=== PATIENT | female | born 1960 | race Caucasian/White ===

== ENCOUNTER 2017-04-10 16:02 | Emergency (ER) | payer OTHER ==
[~2017-04-10] VITALS: Ht 160 cm; Wt 72.6 kg
[~2017-04-10 16:02] MED LIST: ALBUPOW26; ALPR0.5T
[2017-04-10] MEDS ORDERED: IPRATROPIUM BROM 0.5 MG/2.5ML INH SOL NEB ONE (16:30)
[2017-04-10] MEDS ORDERED: ALBUTEROL SULF 2.5 MG/0.5ML(0.5%) NEB SOLN NEB ONE (16:30)
[2017-04-10 17:55] LABS: Basophils # (auto) 0 uL; Basophils % (auto) 0.4 % (0.0-2.0); Eosinophils # (auto) 0.2 uL; Eosinophils % (auto) 2.6 % (0.0-7.0); Hematocrit 41.2 % (36.0-46.0); Hemoglobin 14.1 g/dL (12.2-16.2); Lymphocytes % (auto) 54.6 % (10.0-50.0); Mean Corpuscular Hemoglobin 32.5 pg (28.0-32.0); Mean Corpuscular Hgb Conc. 34.3 g/dL (32.0-36.0); Mean Corpuscular Volume 94.9 fL (80.0-100.0); Monocytes # (auto) 0.6 uL; Monocytes % (auto) 7.5 % (0.0-12.0); Neutrophils # (auto) 2.6 uL; Neutrophils % (auto) 34.9 % (37.0-80.0); Platelet Count (auto) 244 10^3/uL (140-450); Red Blood Cells 4.34 10^6/uL (4.0-5.20); Red Cell Distribution Width 14.1 % (11.8-14.3); White Blood Cell 7.4 10^3/uL (4.4-10.8)
[2017-04-10 18:00] LABS: Alanine Aminotransferase 53 U/L (13-56); Albumin 3.7 g/dL (3.4-5.0); Anion Gap 7 (5-15); Aspartate Aminotransferase 27 U/L (15-37); BUN/Creatinine Ratio 13.9; Blood Urea Nitrogen 10 mg/dL (7-18); Calcium 8.6 mg/dL (8.5-10.1); Carbon Dioxide 27 mmol/L (21-32); Chloride 104 mmol/L (98-107); GFR African American 107 mL/min; GFR Non-African American 88 mL/min; Glucose 113 mg/dL (74-106); Magnesium 2.3 mg/dL (1.6-2.6); Potassium 3.6 mmol/L (3.5-5.1); Sodium 138 mmol/L (136-145)
[2017-04-10 18:04] LABS: Alkaline Phosphatase 91 U/L (45-117); Bilirubin, Total 0.2 mg/dL (0.2-1.0); Total Protein 7.5 g/dL (6.4-8.2)
[2017-04-10] MEDS ORDERED: KETOROLAC TROMETH 30 MG/ML 1ML VIAL IV ONE (19:00)
[2017-04-10] MEDS ORDERED: cefTRIAXone 1GM/50ML D5W 50 ML IV ONE (19:00)
[2017-04-10] MEDS ORDERED: methylPREDNISolone SOD SUCC 125 MG/2 ML VL IV ONE (19:00)
[2017-04-10 21:00] VITALS: BP 124/86
== END 2017-04-10 21:51 | disposition left against medical advice (07) ==
LOC: ER 16:07
DX: J44.1 Chronic obstructive pulmonary disease with (acute) exacerbation (principal); J18.9 Pneumonia, unspecified organism; Z90.710 Acquired absence of both cervix and uterus; F17.210 Nicotine dependence, cigarettes, uncomplicated; Z90.49 Acquired absence of other specified parts of digestive tract; Z53.29 Procedure and treatment not carried out because of patient's decision for other reasons
CPT/HCPCS: 36415; 71010; 74176; 80053; 83735; 83880; 84484; 85025; 93005; 94644; 96365; 96375; 99285; J0696; J1885; J2930

== ENCOUNTER 2017-06-13 12:19 | Inpatient (IN) | payer MEDICAID ==
[~2017-06-13] VITALS: Ht 160 cm; Wt 79.6 kg
[~2017-06-13 12:19] MED LIST changes: -ALBUPOW26; -ALPR0.5T; +ASP81EC PO; +CITA10TA59 PO; +CLON0.5T PO; +LEVO500T21 PO; +PANT40TA2 PO; +QUET50TA PO
[2017-06-13] MEDS ORDERED: SODIUM CHLORIDE 0.9% 1,000 ML IV ONE (13:01)
[2017-06-13] MEDS ORDERED: methylPREDNISolone SOD SUCC 125 MG/2 ML VL IV ONE (13:15)
[2017-06-13] MEDS ORDERED: ALBUTEROL SULF 2.5 MG/0.5ML(0.5%) NEB SOLN NEB ONE ×2 (13:15→18:00)
[2017-06-13] MEDS ORDERED: IPRATROPIUM BROM 0.5 MG/2.5ML INH SOL NEB ONE ×2 (13:15→18:00)
[2017-06-13 13:23] LABS: Basophils # (auto) 0.1 uL; Basophils % (auto) 1.2 % (0.0-2.0); Eosinophils # (auto) 0.1 uL; Hemoglobin 16.6 g/dL (12.2-16.2); Lymphocytes # (auto) 4.3 uL; Lymphocytes % (auto) 41.3 % (10.0-50.0); Mean Corpuscular Hgb Conc. 33.9 g/dL (32.0-36.0); Mean Corpuscular Volume 91.4 fL (80.0-100.0); Monocytes # (auto) 0.7 uL; Monocytes % (auto) 6.6 % (0.0-12.0); Neutrophils # (auto) 5.2 uL; Neutrophils % (auto) 49.9 % (37.0-80.0); Nucleated Red Blood Cells % 0.2 %; Platelet Count (auto) 363 10^3/uL (140-450); Red Blood Cells 5.35 10^6/uL (4.0-5.20); Red Cell Distribution Width 13.8 % (11.8-14.3); White Blood Cell 10.4 10^3/uL (4.4-10.8)
[2017-06-13] MEDS ORDERED: NALBUPHINE HCL 10 MG/1ml INJECTION IV ONE (14:00)
[2017-06-13] MEDS ORDERED: PROMETHAZINE HCL 25 MG/ML 1ML IV ONE ×2 (14:00→18:00)
[2017-06-13] MEDS ORDERED: PANTOPRAZOLE 40 MG TAB PO ONE (14:00)
[2017-06-13 14:01] LABS: Anion Gap 10 (5-15); Blood Urea Nitrogen 8 mg/dL (7-18); Carbon Dioxide 20 mmol/L (21-32); Chloride 110 mmol/L (98-107); Glucose 134 mg/dL (74-106); Potassium 3.8 mmol/L (3.5-5.1); Sodium 140 mmol/L (136-145)
[2017-06-13 14:02] LABS: Alanine Aminotransferase 41 U/L (13-56); Albumin 4.2 g/dL (3.4-5.0); Alkaline Phosphatase 107 U/L (45-117); Aspartate Aminotransferase 21 U/L (15-37); BUN/Creatinine Ratio 8.8; Bilirubin, Total 0.5 mg/dL (0.2-1.0); Calcium 9.3 mg/dL (8.5-10.1); GFR African American 82 mL/min; GFR Non-African American 67 mL/min; Magnesium 2.3 mg/dL (1.6-2.6); Total Protein 8.2 g/dL (6.4-8.2)
[2017-06-13] MEDS ORDERED: KETOROLAC TROMETH 30 MG/ML 1ML VIAL IV ONE (18:00)
[2017-06-13] MEDS ORDERED: AZITHROMYCIN 500MG/ 250ML 250 ML IV ONE (18:00)
[2017-06-13] MEDS ORDERED: NITROGLYCERIN 0.4 MG SL TAB SL PRN (18:45)
[2017-06-13] MEDS ORDERED: LACTULOSE 20Gm/30ML SOLN PO PRN (18:45)
[2017-06-13] MEDS ORDERED: LORazepam 0.5 MG TAB PO PRN (18:45)
[2017-06-13] MEDS ORDERED: ACETAMINOPHEN 500 MG TAB PO PRN (18:45)
[2017-06-13] MEDS ORDERED: TEMAZEPAM 15 MG CAP PO PRN (18:45)
[2017-06-13] MEDS ORDERED: PROMETHAZINE HCL 25 MG/ML 1ML IV PRN (18:45)
[2017-06-13] MEDS ORDERED: MORPHINE SULF INJ 2 MG/ML SYRINGE 1ML IV PRN (18:45)
[2017-06-13] MEDS ORDERED: DEXTROSE (50%) 50ML SYRG IV PRN (18:45)
[2017-06-13 18:55] VITALS: BP 138/38
[2017-06-13] MEDS: SODIUM CHLORIDE 0.9% 1,000 ML IV SCH (19:16)
[2017-06-13] MEDS: DOXYCYCLINE HYC 100MG/250ML 250 ML IV SCH (19:26)
[2017-06-13 20:30] VITALS: BP 128/74
[2017-06-13] MEDS: HYDROcodone-ACET 5/325MG TAB PO PRN (20:30)
[2017-06-13 21:00] VITALS: BP 128/74
[2017-06-13] MEDS: QUEtiapine FUMARATE 100 MG TAB PO SCH (22:00)
[2017-06-13] MEDS: clonazePAM 0.5 MG TAB PO SCH (22:00)
[2017-06-14] MEDS: ACCU-CHEK COMFORT CURVE STRIP VI SCH ×5 (00:07→23:46)
[2017-06-14] MEDS: methylPREDNISolone SOD SUCC 40 MG/ML VL IV SCH ×5 (00:07→23:46)
[2017-06-14] MEDS: MORPHINE SULF INJ 2 MG/ML SYRINGE 1ML IV PRN ×5 (00:08→22:42)
[2017-06-14] MEDS: ALBUTEROL SULF 2.5 MG/0.5ML(0.5%) NEB SOLN NEB SCH ×3 (00:40→13:00)
[2017-06-14] MEDS: IPRATROPIUM BROM 0.5 MG/2.5ML INH SOL NEB SCH ×3 (00:40→13:00)
[2017-06-14] MEDS ORDERED: INFLUENZA QUAD 2017-2018 0.5 ML SYRG IM ONE (02:30)
[2017-06-14] MEDS ORDERED: LAM100T OR (03:34)
[2017-06-14] MEDS ORDERED: OMEP20CA74 PO (03:34)
[2017-06-14 05:26] VITALS: BP 123/66
[2017-06-14] MEDS: DOXYCYCLINE HYC 100MG/250ML 250 ML IV SCH ×2 (06:19→18:05)
[2017-06-14 06:21] LABS: Cholesterol 226 mg/dL (< 200); HDL Cholesterol 49 mg/dL (40-59); LDL Cholesterol 157 mg/dL (< 100); Triglycerides 129 mg/dL (< 150)
[2017-06-14 08:00] VITALS: BP 123/66
[2017-06-14] MEDS: PANTOPRAZOLE 40 MG TAB PO SCH (08:48)
[2017-06-14 09:00] VITALS: BP 119/69
[2017-06-14] MEDS: SODIUM CHLORIDE 0.9% 1,000 ML IV SCH (09:02)
[2017-06-14] MEDS ORDERED: ENOXAPARIN SOD 40 MG/0.4 ML SYRINGE SC SCH (10:00)
[2017-06-14] MEDS ORDERED: ASPirin-EC 81 mg tab PO SCH (10:00)
[2017-06-14] MEDS: CITALOPRAM HYDROBR 20 MG TAB PO SCH (12:30)
[2017-06-14 12:59] VITALS: BP 124/71
[2017-06-14 17:00] VITALS: BP 132/71
[2017-06-14] MEDS ORDERED: cefTRIAXone 1GM/10ml IVPUSH 10 ML IV ONE (18:15)
[2017-06-14] MEDS: clonazePAM 0.5 MG TAB PO SCH (21:26)
[2017-06-14] MEDS: QUEtiapine FUMARATE 100 MG TAB PO SCH (21:26)
[2017-06-14 22:00] VITALS: BP 143/71
[2017-06-15] MEDS: SODIUM CHLORIDE 0.9% 1,000 ML IV SCH ×3 (00:07→23:56)
[2017-06-15 05:34] VITALS: BP 127/69
[2017-06-15] MEDS: methylPREDNISolone SOD SUCC 40 MG/ML VL IV SCH ×4 (05:35→23:45)
[2017-06-15] MEDS: ACCU-CHEK COMFORT CURVE STRIP VI SCH ×4 (05:35→23:46)
[2017-06-15] MEDS: MORPHINE SULF INJ 2 MG/ML SYRINGE 1ML IV PRN ×4 (05:36→21:44)
[2017-06-15] MEDS: DOXYCYCLINE HYC 100MG/250ML 250 ML IV SCH ×2 (05:55→18:32)
[2017-06-15] MEDS: ALBUTEROL SULF 2.5 MG/0.5ML(0.5%) NEB SOLN NEB SCH ×5 (06:00→19:26)
[2017-06-15] MEDS: IPRATROPIUM BROM 0.5 MG/2.5ML INH SOL NEB SCH ×5 (06:00→19:26)
[2017-06-15 06:35] LABS: Basophils # (auto) 0 uL; Basophils % (auto) 0.2 % (0.0-2.0); Eosinophils # (auto) 0 uL; Hematocrit 42.8 % (36.0-46.0); Hemoglobin 14.2 g/dL (12.2-16.2); Lymphocytes # (auto) 1.7 uL; Lymphocytes % (auto) 11.8 % (10.0-50.0); Mean Corpuscular Hgb Conc. 33.2 g/dL (32.0-36.0); Mean Corpuscular Volume 93.4 fL (80.0-100.0); Monocytes # (auto) 0.4 uL; Monocytes % (auto) 2.7 % (0.0-12.0); Neutrophils # (auto) 12.6 uL; Neutrophils % (auto) 85.3 % (37.0-80.0); Nucleated Red Blood Cells % 0.1 %; Platelet Count (auto) 283 10^3/uL (140-450); Red Blood Cells 4.59 10^6/uL (4.0-5.20); Red Cell Distribution Width 13.8 % (11.8-14.3); White Blood Cell 14.8 10^3/uL (4.4-10.8)
[2017-06-15 06:55] LABS: Albumin 3.4 g/dL (3.4-5.0); Calcium 9.5 mg/dL (8.5-10.1); Potassium 4.3 mmol/L (3.5-5.1)
[2017-06-15 06:58] LABS: Bilirubin, Total 0.3 mg/dL (0.2-1.0); Total Protein 6.9 g/dL (6.4-8.2)
[2017-06-15 08:00] VITALS: BP 147/74
[2017-06-15 09:00] VITALS: BP 147/74
[2017-06-15] MEDS: PANTOPRAZOLE 40 MG TAB PO SCH (10:37)
[2017-06-15] MEDS: cefTRIAXone 1GM/10ml IVPUSH 10 ML IV SCH (10:38)
[2017-06-15 12:00] VITALS: BP 103/70
[2017-06-15] MEDS: CITALOPRAM HYDROBR 20 MG TAB PO SCH (12:22)
[2017-06-15] MEDS: ALBUTEROL SULF 2.5 MG/0.5ML(0.5%) NEB SOLN NEB PRN (14:52)
[2017-06-15 16:48] VITALS: BP 135/70
[2017-06-15] MEDS: QUEtiapine FUMARATE 100 MG TAB PO SCH (21:43)
[2017-06-15] MEDS: clonazePAM 0.5 MG TAB PO SCH (21:43)
[2017-06-15 22:00] VITALS: BP 142/77
[2017-06-16] MEDS: IPRATROPIUM BROM 0.5 MG/2.5ML INH SOL NEB SCH ×4 (00:44→18:43)
[2017-06-16] MEDS: ALBUTEROL SULF 2.5 MG/0.5ML(0.5%) NEB SOLN NEB SCH ×4 (00:44→18:43)
[2017-06-16] MEDS: SODIUM CHLORIDE 0.9% 1,000 ML IV SCH ×2 (04:20→21:08)
[2017-06-16 05:00] VITALS: BP 129/80
[2017-06-16] MEDS: methylPREDNISolone SOD SUCC 40 MG/ML VL IV SCH ×2 (05:42→17:29)
[2017-06-16] MEDS: ACCU-CHEK COMFORT CURVE STRIP VI SCH ×4 (05:43→23:30)
[2017-06-16] MEDS: DOXYCYCLINE HYC 100MG/250ML 250 ML IV SCH ×2 (06:15→18:58)
[2017-06-16 07:21] LABS: Basophils # (auto) 0 uL; Basophils % (auto) 0.2 % (0.0-2.0); Eosinophils # (auto) 0 uL; Hematocrit 41.5 % (36.0-46.0); Hemoglobin 13.9 g/dL (12.2-16.2); Lymphocytes # (auto) 1.2 uL; Lymphocytes % (auto) 11.2 % (10.0-50.0); Mean Corpuscular Hemoglobin 31.1 pg (28.0-32.0); Mean Corpuscular Hgb Conc. 33.6 g/dL (32.0-36.0); Mean Corpuscular Volume 92.4 fL (80.0-100.0); Monocytes # (auto) 0.3 uL; Monocytes % (auto) 2.7 % (0.0-12.0); Neutrophils % (auto) 85.9 % (37.0-80.0); Platelet Count (auto) 254 10^3/uL (140-450); Red Blood Cells 4.49 10^6/uL (4.0-5.20); Red Cell Distribution Width 13.6 % (11.8-14.3); White Blood Cell 10.5 10^3/uL (4.4-10.8)
[2017-06-16 07:35] LABS: Albumin 3.2 g/dL (3.4-5.0); Potassium 4.4 mmol/L (3.5-5.1)
[2017-06-16 07:45] LABS: BUN/Creatinine Ratio 35.1; Bilirubin, Total 0.2 mg/dL (0.2-1.0); Total Protein 6.6 g/dL (6.4-8.2)
[2017-06-16] MEDS: cefTRIAXone 1GM/10ml IVPUSH 10 ML IV SCH (08:15)
[2017-06-16] MEDS: MORPHINE SULF INJ 2 MG/ML SYRINGE 1ML IV PRN ×2 (08:17→13:17)
[2017-06-16 08:18] VITALS: BP 122/78
[2017-06-16] MEDS: PANTOPRAZOLE 40 MG TAB PO SCH (10:23)
[2017-06-16] MEDS: CITALOPRAM HYDROBR 20 MG TAB PO SCH (12:11)
[2017-06-16 12:53] VITALS: BP 156/77
[2017-06-16 16:56] VITALS: BP 132/68
[2017-06-16] MEDS: MORPHINE SULFATE 10 MG/ML INJ 1ML SDV IV PRN ×2 (17:29→22:12)
[2017-06-16] MEDS ORDERED: MORPHINE SULFATE 10 MG/ML INJ 1ML SDV IV PRN (17:30)
[2017-06-16] MEDS: clonazePAM 0.5 MG TAB PO SCH (21:38)
[2017-06-16] MEDS: QUEtiapine FUMARATE 100 MG TAB PO SCH (21:38)
[2017-06-16 22:05] VITALS: BP 142/88
[2017-06-17] MEDS: IPRATROPIUM BROM 0.5 MG/2.5ML INH SOL NEB SCH ×4 (00:31→18:17)
[2017-06-17] MEDS: ALBUTEROL SULF 2.5 MG/0.5ML(0.5%) NEB SOLN NEB SCH ×4 (00:31→18:17)
[2017-06-17 04:42] VITALS: BP 142/88
[2017-06-17 05:26] VITALS: BP 115/59
[2017-06-17] MEDS: methylPREDNISolone SOD SUCC 40 MG/ML VL IV SCH ×2 (05:42→17:58)
[2017-06-17] MEDS: ACCU-CHEK COMFORT CURVE STRIP VI SCH ×4 (06:02→23:40)
[2017-06-17] MEDS: DOXYCYCLINE HYC 100MG/250ML 250 ML IV SCH ×2 (06:16→17:59)
[2017-06-17 08:00] VITALS: BP 119/73
[2017-06-17] MEDS: MORPHINE SULFATE 10 MG/ML INJ 1ML SDV IV PRN ×4 (09:23→21:49)
[2017-06-17] MEDS: PANTOPRAZOLE 40 MG TAB PO SCH (09:23)
[2017-06-17] MEDS: cefTRIAXone 1GM/10ml IVPUSH 10 ML IV SCH (09:24)
[2017-06-17 11:55] VITALS: BP 137/75
[2017-06-17] MEDS: CITALOPRAM HYDROBR 20 MG TAB PO SCH (14:48)
[2017-06-17] MEDS ORDERED: DEXTROSE (50%) 50ML SYRG IV PRN ×2 (15:45)
[2017-06-17] MEDS: SODIUM CHLORIDE 0.9% 1,000 ML IV SCH (15:56)
[2017-06-17] MEDS: ALBUTEROL SULF 2.5 MG/0.5ML(0.5%) NEB SOLN NEB PRN (16:34)
[2017-06-17 16:54] VITALS: BP 113/75
[2017-06-17] MEDS ORDERED: InsuLIN REG 1unit/0.01ml Soln (100units/ml) SC SCH ×2 (17:00→22:00)
[2017-06-17] MEDS ORDERED: ACCU-CHEK COMFORT CURVE STRIP VI SCH (17:00)
[2017-06-17] MEDS: InsuLIN REG 1unit/0.01ml Soln (100units/ml) SC SCH ×2 (17:59→23:43)
[2017-06-17] MEDS: clonazePAM 0.5 MG TAB PO SCH (21:23)
[2017-06-17] MEDS: QUEtiapine FUMARATE 100 MG TAB PO SCH (21:23)
[2017-06-17 22:15] VITALS: BP 117/63
[2017-06-18] MEDS: SODIUM CHLORIDE 0.9% 1,000 ML IV SCH
[2017-06-18] MEDS: HYDROcodone-ACET 5/325MG TAB PO PRN (02:20)
[2017-06-18 05:18] VITALS: BP 117/65
[2017-06-18 05:30] LABS: Basophils # (auto) 0 uL; Basophils % (auto) 0.1 % (0.0-2.0); Eosinophils # (auto) 0 uL; Hematocrit 42.2 % (36.0-46.0); Hemoglobin 14.4 g/dL (12.2-16.2); Lymphocytes # (auto) 1.8 uL; Lymphocytes % (auto) 19.5 % (10.0-50.0); Mean Corpuscular Hemoglobin 31.6 pg (28.0-32.0); Mean Corpuscular Hgb Conc. 34.1 g/dL (32.0-36.0); Mean Corpuscular Volume 92.6 fL (80.0-100.0); Monocytes # (auto) 0.6 uL; Monocytes % (auto) 6.6 % (0.0-12.0); Neutrophils # (auto) 6.7 uL; Neutrophils % (auto) 73.8 % (37.0-80.0); Nucleated Red Blood Cells % 0.1 %; Platelet Count (auto) 232 10^3/uL (140-450); Red Blood Cells 4.56 10^6/uL (4.0-5.20); White Blood Cell 9.1 10^3/uL (4.4-10.8)
[2017-06-18] MEDS: methylPREDNISolone SOD SUCC 40 MG/ML VL IV SCH (05:45)
[2017-06-18] MEDS: MORPHINE SULFATE 10 MG/ML INJ 1ML SDV IV PRN (05:46)
[2017-06-18] MEDS: IPRATROPIUM BROM 0.5 MG/2.5ML INH SOL NEB SCH ×2 (05:46)
[2017-06-18] MEDS: ALBUTEROL SULF 2.5 MG/0.5ML(0.5%) NEB SOLN NEB SCH ×2 (05:46)
[2017-06-18 05:54] LABS: Calcium 8.9 mg/dL (8.5-10.1); Potassium 4.1 mmol/L (3.5-5.1)
[2017-06-18] MEDS: InsuLIN REG 1unit/0.01ml Soln (100units/ml) SC SCH (06:00)
[2017-06-18] MEDS: ACCU-CHEK COMFORT CURVE STRIP VI SCH (06:06)
[2017-06-18] MEDS: DOXYCYCLINE HYC 100MG/250ML 250 ML IV SCH (06:12)
[2017-06-18 07:26] VITALS: BP 106/65
[2017-06-18] MEDS: cefTRIAXone 1GM/10ml IVPUSH 10 ML IV SCH (09:06)
[2017-06-18] MEDS: PANTOPRAZOLE 40 MG TAB PO SCH (09:07)
[2017-06-18 10:09] VITALS: BP 106/65
== END 2017-06-18 11:23 | disposition home or self-care (01) | DRG 140 ==
LOC: ER 12:19 → OVERFLOW 12:20 → TELE-CENTR 20:24
PROVIDERS: ADMIT Internal Medicine; ATTEND Internal Medicine
DX: J44.1 Chronic obstructive pulmonary disease with (acute) exacerbation (principal); E11.65 Type 2 diabetes mellitus with hyperglycemia; E44.1 Mild protein-calorie malnutrition; E66.01 Morbid (severe) obesity due to excess calories; E11.9 Type 2 diabetes mellitus without complications; F17.210 Nicotine dependence, cigarettes, uncomplicated; F31.9 Bipolar disorder, unspecified; F41.9 Anxiety disorder, unspecified; Z82.49 Family history of ischemic heart disease and other diseases of the circulatory system; Z68.31 Body mass index [BMI] 31.0-31.9, adult; Z83.3 Family history of diabetes mellitus; Z90.710 Acquired absence of both cervix and uterus; Z90.49 Acquired absence of other specified parts of digestive tract; Z88.0 Allergy status to penicillin; Z83.42 Family history of familial hypercholesterolemia; Z79.82 Long term (current) use of aspirin; Z83.1 Family history of other infectious and parasitic diseases; Z79.899 Other long term (current) drug therapy
CPT/HCPCS: 36415; 70450; 71046; 80048; 80053; 80061; 82550; 82962; 83036; 83735; 84443; 84484; 85025; 85379; 85652; 86141; 87081; 87400; 93005; 94640; 94761; 96365; 96375; 96376; J1815; J1885; J3490

== ENCOUNTER 2017-08-25 10:43 | Emergency (ER) | payer MEDICAID ==
[~2017-08-25] VITALS: Ht 160 cm; Wt 79.4 kg
[~2017-08-25 10:43] MED LIST changes: -ASP81EC PO; +LAM100T OR; -LEVO500T21 PO; +OMEP20CA74 PO; -PANT40TA2 PO
[2017-08-25 11:56] LABS: Basophils # (auto) 0.1 uL; Basophils % (auto) 1.2 % (0.0-2.0); Eosinophils # (auto) 0.1 uL; Eosinophils % (auto) 1.1 % (0.0-7.0); Hematocrit 41.2 % (36.0-46.0); Hemoglobin 13.7 g/dL (12.2-16.2); Lymphocytes # (auto) 1.7 uL; Lymphocytes % (auto) 19.4 % (10.0-50.0); Mean Corpuscular Hemoglobin 30.7 pg (28.0-32.0); Mean Corpuscular Hgb Conc. 33.2 g/dL (32.0-36.0); Mean Corpuscular Volume 92.5 fL (80.0-100.0); Monocytes # (auto) 0.7 uL; Neutrophils # (auto) 6.2 uL; Neutrophils % (auto) 70.3 % (37.0-80.0); Platelet Count (auto) 234 10^3/uL (140-450); Red Blood Cells 4.45 10^6/uL (4.0-5.20); Red Cell Distribution Width 15.3 % (11.8-14.3); White Blood Cell 8.8 10^3/uL (4.4-10.8)
[2017-08-25 12:12] LABS: Alanine Aminotransferase 31 U/L (13-56); Albumin 3.4 g/dL (3.4-5.0); Alkaline Phosphatase 97 U/L (45-117); Anion Gap 7 (5-15); Aspartate Aminotransferase 20 U/L (15-37); BUN/Creatinine Ratio 8.2; Bilirubin, Total 0.4 mg/dL (0.2-1.0); Blood Urea Nitrogen 6 mg/dL (7-18); Calcium 8.6 mg/dL (8.5-10.1); Carbon Dioxide 24 mmol/L (21-32); Chloride 108 mmol/L (98-107); GFR African American 105 mL/min; GFR Non-African American 87 mL/min; Glucose 192 mg/dL (74-106); Magnesium 2.1 mg/dL (1.6-2.6); Sodium 139 mmol/L (136-145); Total Protein 7.3 g/dL (6.4-8.2)
[2017-08-25 12:14] VITALS: BP 149/67
[2017-08-25] MEDS ORDERED: cefTRIAXone SOD 1,000 MG VL IM ONE (12:15)
[2017-08-25] MEDS ORDERED: ALBUTEROL SULF 2.5 MG/0.5ML(0.5%) NEB SOLN NEB ONE (12:15)
[2017-08-25] MEDS ORDERED: methylPREDNISolone SOD SUCC 125 MG/2 ML VL IM ONE (12:15)
[2017-08-25] MEDS ORDERED: IPRATROPIUM BROM 0.5 MG/2.5ML INH SOL NEB ONE (12:15)
[2017-08-25] MEDS ORDERED: KETOROLAC TROMETH 60MG/2ML VIAL IM ONE (13:00)
== END 2017-08-25 13:29 | disposition home or self-care (01) ==
LOC: ER 10:43
DX: J45.901 Unspecified asthma with (acute) exacerbation (principal); I10 Essential (primary) hypertension; F17.210 Nicotine dependence, cigarettes, uncomplicated; Z90.710 Acquired absence of both cervix and uterus; Z90.49 Acquired absence of other specified parts of digestive tract
CPT/HCPCS: 36415; 71046; 80053; 83735; 84484; 85025; 93005; 94644; 96372; 99285; J0696; J1885; J2930

== ENCOUNTER 2017-10-03 11:57 | Observation (INO) | payer MEDICAID, OTHER ==
[~2017-10-03] VITALS: Ht 160 cm; Wt 81.2 kg
[2017-10-03 12:43] LABS: Urine Bacteria FEW /hpf (None Seen); Urine Blood TRACE /uL (Negative); Urine Specific Gravity 1.016 (1.001-1.035); Urine WBC <1 /hpf (0 - 5)
[2017-10-03 13:03] LABS: Basophils # (auto) 0.1 uL; Basophils % (auto) 0.9 % (0.0-2.0); Eosinophils # (auto) 0.1 uL; Eosinophils % (auto) 1.4 % (0.0-7.0); Hematocrit 45.8 % (36.0-46.0); Hemoglobin 15.4 g/dL (12.2-16.2); Lymphocytes # (auto) 4.1 uL; Lymphocytes % (auto) 49.1 % (10.0-50.0); Mean Corpuscular Hemoglobin 30.5 pg (28.0-32.0); Mean Corpuscular Hgb Conc. 33.7 g/dL (32.0-36.0); Mean Corpuscular Volume 90.7 fL (80.0-100.0); Monocytes # (auto) 0.7 uL; Monocytes % (auto) 8.3 % (0.0-12.0); Neutrophils # (auto) 3.4 uL; Neutrophils % (auto) 40.3 % (37.0-80.0); Nucleated Red Blood Cells % 0.1 %; Platelet Count (auto) 241 10^3/uL (140-450); Red Blood Cells 5.05 10^6/uL (4.0-5.20); Red Cell Distribution Width 14.6 % (11.8-14.3); White Blood Cell 8.4 10^3/uL (4.4-10.8)
[2017-10-03 13:21] LABS: Albumin 3.9 g/dL (3.4-5.0); BUN/Creatinine Ratio 12.8; Calcium 9.2 mg/dL (8.5-10.1); Potassium 4.1 mmol/L (3.5-5.1)
[2017-10-03 13:23] LABS: Bilirubin, Total 0.3 mg/dL (0.2-1.0); Total Protein 7.6 g/dL (6.4-8.2)
[2017-10-03] MEDS ORDERED: ONDANSETRON HCL 4 MG/2 ML VIAL IV ONE (14:15)
[2017-10-03 14:31] LABS: Magnesium 1.9 mg/dL (1.6-2.6)
[2017-10-03 14:53] LABS: INR 0.91 (0.9-1.15); Partial Thromboplastin Time 26.6 sec (22.64-33.71); Prothrombin Time 9.9 sec (9.37-12.3)
[2017-10-03] MEDS ORDERED: KETOROLAC TROMETH 30 MG/ML 1ML VIAL IV ONE (15:15)
[2017-10-03] MEDS ORDERED: MORPHINE SULFATE 8mg/ml INJ SDV IV ONE (16:15)
[2017-10-03] MEDS ORDERED: HYDROcodone-ACET 10/325MG TAB PO ONE (16:15)
[2017-10-03 17:13] VITALS: BP 125/78
== END 2017-10-03 17:16 | disposition home or self-care (01) | DRG 241 ==
LOC: ER 11:57 → OVERFLOW 14:10 → ER 17:16
PROVIDERS: ADMIT Family Medicine; ATTEND Family Medicine
DX: K29.70 Gastritis, unspecified, without bleeding (principal); K76.0 Fatty (change of) liver, not elsewhere classified; I10 Essential (primary) hypertension; F31.9 Bipolar disorder, unspecified; F17.210 Nicotine dependence, cigarettes, uncomplicated
CPT/HCPCS: 36415; 71045; 74176; 80053; 81001; 82150; 83690; 83735; 85025; 85610; 85730; 96374; 96375; 99285; G0378; J1885; J2405; 93005

== ENCOUNTER 2018-01-06 22:53 | Emergency (ER) | payer MEDICAID ==
[~2018-01-06] VITALS: Ht 160 cm; Wt 75.7 kg
[2018-01-06] MEDS ORDERED: ALBUTEROL SULF 2.5 MG/0.5ML(0.5%) NEB SOLN NEB ONE (23:15)
[2018-01-06] MEDS ORDERED: IPRATROPIUM BROM 0.5 MG/2.5ML INH SOL NEB ONE (23:15)
[2018-01-07 00:07] LABS: Basophils # (auto) 0.1 uL; Basophils % (auto) 1.2 % (0.0-2.0); Eosinophils # (auto) 0.2 uL; Eosinophils % (auto) 1.8 % (0.0-7.0); Hematocrit 46.5 % (36.0-46.0); Hemoglobin 15.9 g/dL (12.2-16.2); Lymphocytes # (auto) 5.7 uL; Lymphocytes % (auto) 50.2 % (10.0-50.0); Mean Corpuscular Hemoglobin 31.7 pg (28.0-32.0); Mean Corpuscular Hgb Conc. 34.1 g/dL (32.0-36.0); Mean Corpuscular Volume 92.9 fL (80.0-100.0); Monocytes # (auto) 0.9 uL; Monocytes % (auto) 7.6 % (0.0-12.0); Neutrophils # (auto) 4.4 uL; Neutrophils % (auto) 39.2 % (37.0-80.0); Nucleated Red Blood Cells % 0.2 %; Platelet Count (auto) 219 10^3/uL (140-450); Red Blood Cells 5.01 10^6/uL (4.0-5.20); Red Cell Distribution Width 15.1 % (11.8-14.3); White Blood Cell 11.3 10^3/uL (4.4-10.8)
[2018-01-07 00:23] LABS: Alanine Aminotransferase 44 U/L (13-56); Albumin 3.8 g/dL (3.4-5.0); Amylase 26 U/L (25-115); Anion Gap 10 (5-15); Aspartate Aminotransferase 21 U/L (15-37); BUN/Creatinine Ratio 9.8; Blood Urea Nitrogen 8 mg/dL (7-18); Calcium 9.3 mg/dL (8.5-10.1); Carbon Dioxide 22 mmol/L (21-32); Chloride 110 mmol/L (98-107); GFR African American 92 mL/min; GFR Non-African American 76 mL/min; Glucose 134 mg/dL (74-106); Lipase 91 U/L (73-393); Potassium 3.8 mmol/L (3.5-5.1); Sodium 142 mmol/L (136-145)
[2018-01-07 00:36] LABS: Alkaline Phosphatase 97 U/L (45-117); Bilirubin, Total 0.4 mg/dL (0.2-1.0); Total Protein 7.5 g/dL (6.4-8.2)
[2018-01-07] MEDS ORDERED: ONDANSETRON HCL 4 MG/2 ML VIAL IV ONE (00:45)
[2018-01-07] MEDS ORDERED: NITROGLYCERIN 0.4 MG SL TAB SL ONE (00:45)
[2018-01-07] MEDS ORDERED: ASPirin 81 mg TAB PO ONE (00:45)
[2018-01-07] MEDS ORDERED: MORPHINE SULFATE 4 MG/ML SYR/VIAL IV ONE (00:45)
[2018-01-07] MEDS ORDERED: KETOROLAC TROMETH 30 MG/ML 1ML VIAL IV ONE ×2 (04:45)
[2018-01-07] MEDS ORDERED: PANTOPRAZOLE 40 MG/10 ML VIAL IV ONE (04:45)
[2018-01-07 05:30] LABS: Urine Bacteria FEW /hpf (None Seen); Urine Blood Negative /uL (Negative); Urine Mucus FEW (None Seen); Urine Specific Gravity 1.022 (1.001-1.035); Urine WBC 2 /hpf (0 - 5)
[2018-01-07 06:05] LABS: Alcohol, Urine < 3.0 mg/dL (0-5); Amphetamine Screen, Urine NEGATIVE (NEGATIVE); Barbiturate Scree,Urine POSITIVE (NEGATIVE); Benzodiazephine Screen, Urine NEGATIVE (NEGATIVE); Cannabinoid Screen, Urine POSITIVE (NEGATIVE); Cocaine Screen, Urine NEGATIVE (NEGATIVE); Opiate Scree,Urine POSITIVE (NEGATIVE); Phencyclidine Screen, Urine NEGATIVE (NEGATIVE)
[2018-01-07 06:11] VITALS: BP 134/76
== END 2018-01-07 06:28 | disposition home or self-care (01) ==
LOC: ER 23:00
DX: R10.13 Epigastric pain (principal); I10 Essential (primary) hypertension; F17.210 Nicotine dependence, cigarettes, uncomplicated; Z88.0 Allergy status to penicillin; Z79.899 Other long term (current) drug therapy; Z90.49 Acquired absence of other specified parts of digestive tract; Z90.710 Acquired absence of both cervix and uterus
CPT/HCPCS: 36415; 71045; 74176; 80053; 80307; 81001; 82150; 83690; 84484; 85025; 93005; 94640; 96374; 96375; 99285; C9113; J1885; J2270; J2405

== ENCOUNTER 2018-06-09 13:18 | Emergency (ER) | payer MEDICAID ==
[~2018-06-09] VITALS: Ht 160 cm; Wt 73.0 kg
[2018-06-09] MEDS ORDERED: SODIUM CHLORIDE 0.9% 1,000 ML IV ONE (15:01)
[2018-06-09 15:05] LABS: Urine WBC None Seen /hpf (0 - 5)
[2018-06-09 15:17] LABS: Urine Bacteria NONE SEEN /hpf (None Seen); Urine Blood Negative /uL (Negative); Urine Specific Gravity 1.012 (1.001-1.035)
[2018-06-09 15:35] LABS: Basophils # (auto) 0.1 uL; Basophils % (auto) 0.7 % (0.0-2.0); Eosinophils # (auto) 0.2 uL; Eosinophils % (auto) 1.8 % (0.0-7.0); Hematocrit 47.9 % (36.0-46.0); Hemoglobin 16.3 g/dL (12.2-16.2); Lymphocytes # (auto) 4.6 uL; Mean Corpuscular Hemoglobin 32.2 pg (28.0-32.0); Mean Corpuscular Volume 94.5 fL (80.0-100.0); Monocytes # (auto) 0.7 uL; Monocytes % (auto) 6.8 % (0.0-12.0); Neutrophils # (auto) 4.7 uL; Neutrophils % (auto) 45.7 % (37.0-80.0); Nucleated Red Blood Cells % 0.2 %; Platelet Count (auto) 286 10^3/uL (140-450); Red Blood Cells 5.07 10^6/uL (4.0-5.20); Red Cell Distribution Width 13.4 % (11.8-14.3); White Blood Cell 10.2 10^3/uL (4.4-10.8)
[2018-06-09 15:45] LABS: Albumin 3.9 g/dL (3.4-5.0); Anion Gap 9 (5-15); Blood Urea Nitrogen 9 mg/dL (7-18); Carbon Dioxide 22 mmol/L (21-32); Chloride 108 mmol/L (98-107); Glucose 135 mg/dL (74-106); Potassium 3.9 mmol/L (3.5-5.1); Sodium 139 mmol/L (136-145)
[2018-06-09 15:52] LABS: Alanine Aminotransferase 33 U/L (13-56); Alkaline Phosphatase 100 U/L (45-117); Aspartate Aminotransferase 14 U/L (15-37); BUN/Creatinine Ratio 11.1; Bilirubin, Total 0.3 mg/dL (0.2-1.0); GFR African American 93 mL/min; GFR Non-African American 77 mL/min; Lipase 155 U/L (73-393); Total Protein 7.7 g/dL (6.4-8.2)
[2018-06-09 16:59] VITALS: BP 157/83
== END 2018-06-09 17:06 | disposition home or self-care (01) ==
LOC: ER 13:18
DX: R07.89 Other chest pain (principal); J44.9 Chronic obstructive pulmonary disease, unspecified; I10 Essential (primary) hypertension; F17.210 Nicotine dependence, cigarettes, uncomplicated; Z90.49 Acquired absence of other specified parts of digestive tract; Z90.710 Acquired absence of both cervix and uterus
CPT/HCPCS: 36415; 71045; 74176; 80053; 81001; 83690; 83880; 84484; 85025; 93005